=== PATIENT | female | born 1990 | race Caucasian/White ===

== ENCOUNTER 2018-04-14 16:26 | Emergency (ER) | END 2018-04-14 20:48 | disposition home or self-care (01) ==

== ENCOUNTER 2018-04-15 18:39 | Emergency (ER) | END 2018-04-15 22:27 | disposition home or self-care (01) ==

== ENCOUNTER 2019-04-29 14:24 | Emergency (ER) | payer OTHER ==
[~2019-04-29] VITALS: Ht 165.1 cm; Wt 103.0 kg
[~2019-04-29 14:24] MED LIST: NORG1TAB14 PO
[2019-04-29 14:28] VITALS: Ht 165.1 cm; Wt 103.0 kg
[2019-04-29 18:31] VITALS: BP 138/93; PULSE 70; RESP 18
== END 2019-04-29 18:33 | disposition home or self-care (01) ==
LOC: FTE 14:24
DX: R20.2 Paresthesia of skin (principal); R10.2 Pelvic and perineal pain
CPT/HCPCS: 36415; 76856; 80053; 81001; 81025; 83690; 85025; Z7502; 81003